=== PATIENT | female | born 1985 | race Caucasian/White ===

== ENCOUNTER 2016-11-13 11:27 | Observation (INO) | payer BC, OTHER ==
[~2016-11-13] VITALS: Ht 170.2 cm; Wt 90.7 kg
== END 2016-11-13 14:00 | disposition home or self-care (01) ==
LOC: MLD 11:27
PROVIDERS: ADMIT Obstetrics & Gynecology; ATTEND Obstetrics & Gynecology
DX: O62.9 Abnormality of forces of labor, unspecified (principal); Z3A.38 38 weeks gestation of pregnancy
CPT/HCPCS: 59025; 76805; 81000; G0378; Q0092

== ENCOUNTER 2016-11-19 17:36 | Inpatient (IN) | payer BC, OTHER ==
[~2016-11-19] VITALS: Ht 170.2 cm; Wt 90.7 kg
[2016-11-19] MEDS ORDERED: PREN-380 PO (18:11)
[2016-11-19] MEDS ORDERED: LACTATED RINGERS 1,000 ML IV SCH (18:11)
[2016-11-19] MEDS ORDERED: NALBUPHINE HYDROCHLORIDE 10 MG/ML VIAL IVP PRN (18:15)
[2016-11-19] MEDS ORDERED: CARBOPROST 250 MCG/ML AMP IM PRN (18:15)
[2016-11-19] MEDS ORDERED: OXYTOCIN 10 UNITS/ML VIAL IM SCH (18:15)
[2016-11-19] MEDS ORDERED: METHYLERGONOVINE 0.2 MG/ML AMP IM PRN (18:15)
[2016-11-19] MEDS ORDERED: PROMETHAZINE 25 MG/ML VIAL IVP PRN (18:15)
[2016-11-19] MEDS ORDERED: OXYTOCIN 20 UNITS/LR PREMIX 1,000 ML IV SCH (18:25)
[2016-11-19 18:29] VITALS: BP 119/56
[2016-11-19 19:13] LABS: BASOPHILS # (AUTO) 0.2 K/uL (0.00-0.22); BASOPHILS % (AUTO) 1.2 % (0.0-2.0); EOSINOPHILS # (AUTO) 0.3 K/uL (0-0.4); EOSINOPHILS % (AUTO) 2.1 % (0.0-4.0); HEMATOCRIT 36.5 % (36-48); HEMOGLOBIN 12.1 g/dL (12.0-16.0); LYMPHOCYTES # (AUTO) 1.9 K/uL (2.5-16.5); LYMPHOCYTES % (AUTO) 14.4 % (20.5-51.1); MEAN CORPUSCULAR HEMOGLOBIN 28 pg (27-31); MEAN CORPUSCULAR HGB CONC 33 g/dL (33-37); MEAN CORPUSCULAR VOLUME 83 fL (80-94); MONOCYTES % (AUTO) 7.2 % (1.7-9.3); NEUTROPHILS # (AUTO) 9.9 K/uL (1.8-7.7); NEUTROPHILS % (AUTO) 75.1 % (42.2-75.2); PLATELET COUNT (AUTO) 196 K/uL (140-450); RED CELL DISTRIBUTION WIDTH 13.9 % (11.6-13.7); WHITE BLOOD COUNT (AUTO) 13.3 K/uL (4.8-10.8)
[2016-11-19 19:41] LABS: BILIRUBIN,URINE NEGATIVE (NEGATIVE); BLOOD, URINE NEGATIVE (NEGATIVE); COLOR,URINE YELLOW (YELLOW); LEUKOCYTE ESTERASE ,URINE 1+ (NEGATIVE); NITRITE, URINE NEGATIVE (NEGATIVE); PROTEIN,URINE NEGATIVE (NEGATIVE); UGLUCOSE NEGATIVE (NEGATIVE); UROBILINOGEN,URINE 0.2 EU/dL (0.2 - 1)
[2016-11-19 19:44] LABS: APPEARANCE,URINE SLIGHTLY HAZY (CLEAR)
[2016-11-19 19:47] LABS: BACTERIA,URINE 1+ /HPF (None Seen); RBC,URINE 0-5 /HPF (0-5); SQUAMOUS EPITHELIAL CELL,UR 15-30 /LPF (0-3 (FEW)); WBC,URINE 0-5 /HPF (0-5)
[2016-11-19] MEDS ORDERED: MISOPROSTOL 25 MCG TAB VG SCH (20:00)
[2016-11-19] MEDS ORDERED: MISOPROSTOL 25 MCG TAB ONE (21:21)
[2016-11-20] MEDS ORDERED: OXYTOCIN 20 UNITS/LR PREMIX 1,000 ML IV ONE (08:01)
--- NOTE | 2016-11-20 09:05 | NUR ---
PATIENT HAS BEEN SCREENED AND CATEGORIZED LOW NUTRITION RISK. PATIENT WILL BE SEEN WITHIN 7 DAYS OF ADMISSION. 11/26/[address]
[2016-11-20] MEDS ORDERED: OXYTOCIN 10 UNITS/ML VIAL ONE (10:15)
[2016-11-20] MEDS ORDERED: LIDOCAINE 1% 50 ML ONE (10:15)
[2016-11-20] MEDS ORDERED: LIDOCAINE 1% 500 MG/50 ML VIAL INJ SCH ×2 (11:35→12:10)
[2016-11-20] MEDS ORDERED: BUPIVACAINE 0.125%/NS PREMIX 250 ML ONE (15:04)
[2016-11-20] MEDS ORDERED: OXYTOCIN 20 UNITS/LR PREMIX 1,000 ML IV SCH (20:29)
[2016-11-20] MEDS ORDERED: WITCH HAZEL 40 PAD PACKAGE TP PRN (20:30)
[2016-11-20] MEDS ORDERED: MEASLES, MUMPS, AND RUBELLA 1 VIAL SQVAC PRN (20:30)
[2016-11-20] MEDS ORDERED: BISACODYL 5 MG TABEC PO PRN (20:30)
[2016-11-20] MEDS ORDERED: ACETAMINOPHEN 325 MG TAB PO PRN (20:30)
[2016-11-20] MEDS ORDERED: BENZOCAINE/MENTHOL 20%-0.5% 60 GM CAN TP PRN (20:30)
[2016-11-20] MEDS ORDERED: oxyCODONE/APAP 5/325 MG 1 TAB TAB ONE (22:21)
[2016-11-20] MEDS: oxyCODONE/APAP 5/325 MG 1 TAB TAB PO PRN (22:46)
[2016-11-21 08:48] LABS: HEMATOCRIT 34.6 % (36-48); MEAN CORPUSCULAR HEMOGLOBIN 27 pg (27-31); MEAN CORPUSCULAR HGB CONC 32 g/dL (33-37); MEAN CORPUSCULAR VOLUME 85 fL (80-94); PLATELET COUNT (AUTO) 192 K/uL (140-450); RED BLOOD CELL COUNT(AUTO) 4.09 MIL/uL (4.20-5.40); RED CELL DISTRIBUTION WIDTH 13.9 % (11.6-13.7)
[2016-11-21 09:28] LABS: BAND % (MANUAL) 6 % (0-8); LYMPHOCYTES % (MANUAL) 21 % (20-46); NEUTROPHILS % (MANUAL) 68 (43-65)
[2016-11-21 09:29] LABS: MONOCYTES % (MANUAL) 5 % (5-12)
[2016-11-21] MEDS: oxyCODONE/APAP 5/325 MG 1 TAB TAB PO PRN ×3 (10:54→15:20)
== END 2016-11-22 17:10 | disposition home or self-care (01) | DRG 775 ==
LOC: MLD 17:36 → MFCC 11-20 23:30
PROVIDERS: ADMIT Obstetrics & Gynecology; ATTEND Obstetrics & Gynecology
PROC: 10E0XZZ Delivery of Products of Conception, External Approach (ICD-10-PCS; principal; 2016-11-20)
PROC: 3E0P7GC Introduction of Other Therapeutic Substance into Female Reproductive, Via Natural or Artificial Opening (ICD-10-PCS; 2016-11-20)
PROC: 0HQ9XZZ Repair Perineum Skin, External Approach (ICD-10-PCS; 2016-11-20)
PROC: 00HU33Z Insertion of Infusion Device into Spinal Canal, Percutaneous Approach (ICD-10-PCS; 2016-11-20)
PROC: 3E0R3CZ (ICD-10-PCS; 2016-11-20)
PROC: 3E0234Z Introduction of Serum, Toxoid and Vaccine into Muscle, Percutaneous Approach (ICD-10-PCS; 2016-11-22)
DX: O70.0 First degree perineal laceration during delivery (principal); Z3A.39 39 weeks gestation of pregnancy; Z37.0 Single live birth; Z23 Encounter for immunization
CPT/HCPCS: 36415; 51702; 59200; 59409; 76815; 81001; 85025; 86592; 86886; 86900; 86901; 87086; 90707; J2001; J2590; J3490; J7120; Q0092